=== PATIENT | female | born 1995 | race Two or more races ===

== ENCOUNTER 2018-03-18 14:16 | Emergency (ER) | payer SELFPAY ==
[~2018-03-18] VITALS: Ht 152.4 cm; Wt 41.7 kg
[2018-03-18 14:23] VITALS: BP 116/74
--- NOTE | 2018-03-18 16:03 | NUR ---
FLU SWAB AND STREP THROAT SPECIMEN COLLECTED AND SENT TO LAB
[2018-03-18 16:06] LABS: MONOTEST NEGATIVE (NEGATIVE)
== END 2018-03-18 17:14 | disposition home or self-care (01) ==
LOC: ER 14:19
DX: J02.9 Acute pharyngitis, unspecified (principal); F17.200 Nicotine dependence, unspecified, uncomplicated; Z60.2 Problems related to living alone
CPT/HCPCS: 36415; 86308; 87070; 87804 ×2; 87880; 99283; A4606; Z7610; 86403-TC; 87400

== ENCOUNTER 2018-08-18 04:56 | Emergency (ER) | payer MEDICAID ==
[~2018-08-18] VITALS: Ht 152.4 cm; Wt 42.6 kg
--- NOTE | 2018-08-18 05:18 | NUR ---
BIB FAMILY W/ C/O SOB FOR THE PAST 45 MIN. HOLDING O2 SAT OF 99-100% ON R/A. VSS. DENIED RECENT COLD OR PMH. AFEBRILE. ON CONT. MONITORING.
[2018-08-18 06:54] VITALS: BP 117/78
--- NOTE | 2018-08-18 06:54 | NUR ---
Patient discharged to home in stable condition. Written and verbal after care instructions given. Patient verbalizes understanding of instruction.
== END 2018-08-18 06:55 | disposition home or self-care (01) ==
LOC: ER 05:00
DX: R07.89 Other chest pain (principal); F17.200 Nicotine dependence, unspecified, uncomplicated; Z60.2 Problems related to living alone
CPT/HCPCS: 71045-TC

== ENCOUNTER 2018-11-05 11:24 | Emergency (ER) | payer MEDICAID ==
[~2018-11-05] VITALS: Ht 165.1 cm; Wt 46.4 kg
--- NOTE | 2018-11-05 11:40 | NUR ---
"BIB RA C/O 2 SYNCOPAL EPISODES AT HOME TODAY" PT [id number], -SOB, NAD NOTED, VSS ,PENDING MD VALENZUELA
[2018-11-05 11:51] LABS: BASOPHILS % (AUTO) 0.5 % (0.0-2.0); EOSINOPHILS % (AUTO) 2.4 % (0.0-6.0); HEMATOCRIT 38 % (33-45); HEMOGLOBIN 12.5 g/dL (11.5-14.8); LYMPHOCYTES # (AUTO) 2.4 /CMM (0.8-4.8); LYMPHOCYTES % (AUTO) 34.3 % (20.0-44.0); MEAN CORPUSCULAR HGB CONC 33 g/dl (31.0-36.0); MEAN CORPUSCULAR VOLUME 87 fL (82-100); MONOCYTES # (AUTO) 0.5 /CMM (0.1-1.30); MONOCYTES % (AUTO) 7.3 % (2.0-12.0); NEUTROPHILS # (AUTO) 3.8 /CMM (1.8-8.9); NEUTROPHILS % (AUTO) 55.5 % (43.0-81.0); PLATELET COUNT (AUTO) 204 /CMM (150-450); RED BLOOD CELL COUNT(AUTO) 4.32 MIL/uL (4.0-5.2); WHITE BLOOD COUNT (AUTO) 6.9 K/uL (4.3-11.0)
[2018-11-05 12:02] LABS: CALCIUM, SERUM 8.9 mg/dL (8.5-10.1); CARBON DIOXIDE 25 mmol/L (21-32); CHLORIDE 106 mmol/L (98-107); CREATININE 0.7 mg/dL (0.6-1.3); GLUCOSE 102 mg/dL (74-106); POTASSIUM 3.6 mmol/L (3.5-5.1); SODIUM SERUM 139 mmol/L (136-145); UREA NITROGEN, BLOOD 14 mg/dL (7-18)
[2018-11-05 12:08] LABS: ALANINE AMINOTRANSFERASE 23 U/L (12-78); ALBUMIN 3.8 g/dL (3.4-5.0); ALKALINE PHOSPHATASE 57 U/L (46-116); ASPARTATE AMINOTRANSFERASE 16 U/L (15-37); BILIRUBIN,DIRECT 0.1 mg/dL (0.0-0.2); BILIRUBIN,TOTAL 0.3 mg/dL (0.2-1.0); TOTAL PROTEIN, SERUM 7.3 g/dL (6.4-8.2)
--- NOTE | 2018-11-05 13:18 | NUR ---
Patient discharged to home in stable condition. Written and verbal after care instructions given. Patient verbalizes understanding of instruction. IV removed. Catheter intact and site benign. Pressure and 4x4 applied to site. No bleeding noted.
[2018-11-05 13:22] VITALS: BP 119/80
== END 2018-11-05 13:24 | disposition home or self-care (01) ==
LOC: ER 11:26
DX: R55 Syncope and collapse (principal); F17.200 Nicotine dependence, unspecified, uncomplicated; Z60.2 Problems related to living alone
CPT/HCPCS: 36415; 71045-TC; 80048-TC; 80076-TC; 84484-TC; 84703-TC; 85025-TC

== ENCOUNTER 2020-09-30 22:29 | Emergency (ER) | payer MEDICAID ==
[~2020-09-30] VITALS: Ht 152.4 cm; Wt 45.4 kg
[2020-09-30 22:43] VITALS: BP 132/80
--- NOTE | 2020-09-30 23:14 | NUR ---
FATHER [phone]
--- NOTE | 2020-09-30 23:25 | NUR ---
Patient discharged to home in stable condition. Written and verbal after care instructions given. Patient verbalizes understanding of instruction. Pt ambulatory with a steady gait
== END 2020-09-30 23:26 | disposition home or self-care (01) ==
LOC: ER 22:31
DX: F44.9 Dissociative and conversion disorder, unspecified (principal); F17.210 Nicotine dependence, cigarettes, uncomplicated; Z60.2 Problems related to living alone